=== PATIENT | male | born 1975 | race Caucasian/White ===

== ENCOUNTER 2017-03-04 09:32 | Emergency (ER) | payer BC ==
[~2017-03-04] VITALS: Wt 91.0 kg
[2017-03-04] MEDS ORDERED: KETOROLAC 60 MG INJ IM STA (09:53)
[2017-03-04] MEDS ORDERED: IBUP-1542 PO (09:55)
[2017-03-04] MEDS ORDERED: CYCL-319 PO (09:55)
--- NOTE | 2017-03-04 10:04 | ERD ---
ER Documentation Chief Complaint Date/Time DATE: 03/04/17 TIME: 09:58 Chief Complaint BACK PAIN X 1 WEEK HPI 41 year old male presents to the emergency department complaining of left lumbar back pain status post lifting a 350 pound closet with a another individual a few days prior to being seen. Patient states that the pain is moderate in severity increased with movement. He denies any saddle anesthesia, bladder or bowel incontinence. He states that he took 2 tablets of [place] yesterday without any relief. ROS All systems reviewed and are negative except as per history of present illness. Medications Home Meds Active Scripts Cyclobenzaprine Hcl* (Cyclobenzaprine Hcl*) 10 Mg Tablet, 10 MG PO TID, #30 TAB Prov:RAMIREZ TADEO PA-C 03/04/17 Ibuprofen* (Ibuprofen*) 600 Mg Tablet, 600 MG PO Q6H, #30 TAB Prov:RAMIREZ TADEO PA-C 03/04/17 PMhx/Soc History of Surgery: No Anesthesia Reaction: No Hx Neurological Disorder: No Hx Respiratory Disorders: No Hx Cardiac Disorders: No Hx Psychiatric Problems: No Hx Miscellaneous Medical Probl: No Hx Alcohol Use: No Hx Substance Use: No Hx Tobacco Use: No Smoking Status: Never smoker Physical Exam Vitals Vital Signs Date Time Temp Pulse Resp B/P Pulse Ox O2 Delivery O2 Flow Rate FiO2 03/04/17 09:39 98.0 80 18 146/81 99 Physical Exam GENERAL: WD/WN, in no apparent distress, non-toxic appearing HENT: NC/AT EYES: Conjunctiva normal NECK: Supple PULM: Normal labored breathing CV: Good capillary refill GI: Non-distended, no guarding BACK: no deformities noted, normal spinal curvature, TTP on left lumbar region EXT: No clubbing, cyanosis, or edema NEURO: Moves on all fours, sensation intact, normal gait SKIN: intact PSYCH: Normal mood Results 24 hrs Current Medications Medications (Trade) Dose Ordered Sig/Ronan Route PRN Reason Start Time Stop Time Status Last Admin Dose Admin Ketorolac Tromethamine (Toradol) 60 mg ONCE STAT IM 03/04/17 09:53 03/04/17 09:54 DC Procedures/MDM 41-year-old male presents to the emergency department complaining of left lumbar back pain status post lifting a heavy closet 3 days prior to being seen. This is likely a lumbar back strain he was nontender to palpation his spine midline, pain was reproduced with movement. I have a low suspicion for any fracture dislocation. Low suspicion for cauda equina. In the ED patient was given Toradol. He is stable and neurovascular intact to be discharged home to follow-up with a primary care physician to get a referral to see a physical therapist. I have given him a prescription for ibuprofen and Flexeril. Discussed to rest from physical activity for the next week until he is able to follow-up with primary care physician. Discussed return the ER for any worsening signs this patient understands and agrees with this plan Departure Diagnosis: Primary Impression: Lumbar strain Condition: Stable Patient Instructions: Relieving Back Pain, Back Basics: A Healthy Spine, Back Care Tips, Back Exercises, Lumbar Referrals: [facility] YOU HAVE RECEIVED A MEDICAL SCREENING EXAM AND THE RESULTS INDICATE THAT YOU DO NOT HAVE A CONDITION THAT REQUIRES URGENT TREATMENT IN THE EMERGENCY DEPARTMENT. FURTHER EVALUATION AND TREATMENT OF YOUR CONDITION CAN WAIT UNTIL YOU ARE SEEN IN YOUR DOCTORS OFFICE WITHIN THE NEXT 1-2 DAYS. IT IS YOUR RESPONSIBILITY TO MAKE AN APPOINTMENT FOR [facility]. IF YOU HAVE A PRIMARY DOCTOR --you should call your primary doctor and schedule an appointment IF YOU DO NOT HAVE A PRIMARY DOCTOR YOU CAN CALL OUR PHYSICIAN REFERRAL HOTLINE AT IF YOU CAN NOT AFFORD TO SEE A PHYSICIAN YOU CAN CHOSE FROM THE FOLLOWING [facility] [address] [facility]. [facility] [address] [facility] [facility] [address] [facility]. [facility] [address] [facility]. [facility] [address] [facility]. [facility]. [address] Additional Instructions: FOLLOW UP WITH YOUR PRIMARY CARE PHYSICIAN TOMORROW.Return to this facility if you are not improving as expected. Take all medicines as directed. Return to this facility if you are not improving as expected. You have been given a medicine which may cause drowsiness.DO NOT DRIVE OR OPERATE DANGEROUS MACHINERY while taking this medicine! RAMIREZ TADEO PA-C Mar 04, 2017 10:04
== END 2017-03-04 10:30 | disposition home or self-care (01) ==
LOC: FTE 09:32
DX: S39.012A Strain of muscle, fascia and tendon of lower back, initial encounter (principal); X50.0XXA Overexertion from strenuous movement or load, initial encounter; Y92.9 Unspecified place or not applicable
CPT/HCPCS: 96372; 99284; J1885